=== PATIENT | male | born 1985 | race Caucasian/White ===

== ENCOUNTER 2017-02-16 19:19 | Emergency (ER) | payer OTHER ==
[~2017-02-16] VITALS: Ht 190.5 cm; Wt 104.5 kg
[2017-02-16 19:24] VITALS: BP 154/97; TEMP 99.2
[2017-02-16] MEDS ORDERED: AMOXICILLIN875 MG PO (19:42)
[2017-02-16 20:03] VITALS: PULSE 98
== END 2017-02-16 20:04 | disposition home or self-care (01) ==
LOC: COL.ER 19:19
DX: H65.192 Other acute nonsuppurative otitis media, left ear (principal)
CPT/HCPCS: J8540

== ENCOUNTER 2017-02-25 12:05 | Emergency (ER) | payer OTHER ==
[~2017-02-25] VITALS: Ht 190.5 cm; Wt 104.5 kg
[~2017-02-25 12:05] MED LIST: AMOXICILLIN875 MG PO
[2017-02-25 13:37] LABS: BASO # 0.1 (0.0-0.2); BASO % 0.4 % (0.0-2.0); EOS # 0.1 (0.0-0.7); EOS % 0.8 % (0-4.0); GRAN # 11.4 (1.4-6.5); GRAN % 76.7 % (42.2-75.2); HEMATOCRIT 46.2 % (42.0-52.0); HEMOGLOBIN 15.6 g/dl (13.5-18.0); LYMPH % 13.2 % (20.0-51.0); MEAN CELL VOLUME 84 fl (80.0-100.0); MEAN CORPUSCULAR HEMOGLOBIN 28 pg (27.0-31.0); MEAN CORPUSCULAR HGB CONC 34 g/dl (33.0-37.0); MEAN PLATELET VOLUME 9.6 fl (7.4-10.4); MONO # 1.3 (0.1-0.6); MONO % 8.4 % (1.7-9.3); PLATELET COUNT 418 K/mm3 (130-400); RED BLOOD COUNT 5.51 M/mm3 (4.20-5.60); REDCELL DISTRIBUTION WIDTH-CV 12.2 % (11.5-14.5); WHITE BLOOD COUNT 14.9 K/mm3 (4.8-10.8)
[2017-02-25 13:57] LABS: ADJUSTED CALCIUM 8.9 mg/dL (8.4-10.2); ALANINE AMINOTRANSFERASE 46 U/L (21-72); ALBUMIN 4.8 gm/dL (3.5-5.0); ALKALINE PHOSPHATASE 87 U/L (50-136); ANION GAP 15 mmol/L (7-16); BILIRUBIN,TOTAL 1.4 mg/dL (0.0-1.0); BLOOD UREA NITROGEN 17 mg/dL (9-20); CALCIUM 9.5 mg/dL (8.4-10.2); CARBON DIOXIDE 25 mmol/L (22-30); CHLORIDE 101 mmol/L (98-107); CREATININE, serum 0.89 mg/dL (0.66-1.25); GLUCOSE 89 mg/dL (74-106); POTASSIUM 4.6 mmol/L (3.4-5.0); SODIUM 141 mmol/L (137-145); TOTAL PROTEIN 8.3 gm/dL (6.4-8.2)
[2017-02-25 13:58] LABS: ACETAMINOPHEN < 10 ug/mL (10-30); SALICYLATE < 1.0 mg/dL
[2017-02-25 14:34] VITALS: BP 133/101; TEMP 97.5
[2017-02-25 14:43] LABS: PH 5 (5-8); SQUAMOUS EPITHELIAL 0-2 /hpf; URINE APPEARANCE Hazy; URINE BACTERIA None Seen /hpf; URINE BILIRUBIN Negative (NEGATIVE); URINE BLOOD Negative (NEGATIVE); URINE COLOR Amber; URINE GLUCOSE Negative (NEGATIVE); URINE KETONE 2+ (NEGATIVE); URINE RBC 0-2 /hpf; URINE UROBILINOGEN Negative (NEGATIVE); URINE WBC 0-2 /hpf
[2017-02-25 15:59] LABS: AMPHETAMINE URINE POSITIVE; BARBITURATES URINE NEGATIVE; BENZODIAZEPINES URINE NEGATIVE; BUPRENORPHINE URINE NEGATIVE; METHADONE URINE NEGATIVE; OPIATES URINE NEGATIVE; OXYCODONE URINE NEGATIVE; PHENCYCLIDINE URINE NEGATIVE; PROPOXYPHENE URINE NEGATIVE; THC CANNABINOIDS URINE NEGATIVE
[2017-02-25 16:46] LABS: C-REACTIVE PROTEIN < 0.5 mg/dL (0.0-0.9)
[2017-02-25 18:10] VITALS: PULSE 98
== END 2017-02-25 18:10 | disposition home or self-care (01) ==
LOC: COL.ER 12:05
PROVIDERS: Emergency Medicine
DX: F29 Unspecified psychosis not due to a substance or known physiological condition (principal); H66.93 Otitis media, unspecified, bilateral

== ENCOUNTER 2022-12-31 09:56 | Emergency (ER) | payer OTHER ==
[~2022-12-31] VITALS: Ht 188 cm; Wt 113.6 kg
[2022-12-31 10:53] LABS: BASO % 0.7 % (0.0-2.0); EOS # 0.1 K/mm3 (0.0-0.7); EOS % 2.6 % (0.0-4.0); GRAN # 3.3 K/mm3 (1.4-6.5); GRAN % 60.5 % (42.2-75.2); HEMATOCRIT 44.4 % (42.0-52.0); HEMOGLOBIN 15.1 g/dl (13.5-18.0); LYMPH # 1.5 K/mm3 (1.2-3.4); MEAN CELL VOLUME 81 fl (80.0-100.0); MEAN CORPUSCULAR HEMOGLOBIN 28 pg (27-31); MEAN CORPUSCULAR HGB CONC 34 g/dl (33.0-37.0); MEAN PLATELET VOLUME 9.8 fl (7.4-10.4); MONO # 0.5 K/mm3 (0.1-0.6); PLATELET COUNT 326 K/mm3 (130-400); RED BLOOD COUNT 5.46 M/mm3 (4.20-5.60); REDCELL DISTRIBUTION WIDTH-CV 12.8 % (11.5-14.5)
[2022-12-31 11:07] LABS: ALANINE AMINOTRANSFERASE 38 U/L (0-55); ALKALINE PHOSPHATASE 89 U/L (40-150); ANION GAP 8 mmol/L (7-16); AST,SGOT 34 U/L (5-34); BILIRUBIN,TOTAL 0.8 mg/dL (0.2-1.2); BLOOD UREA NITROGEN 11 mg/dL (9-21); CALCIUM 8.9 mg/dL (8.4-10.2); CARBON DIOXIDE 25 mmol/L (22-29); CHLORIDE 107 mmol/L (98-107); CREATINE KINASE 451 U/L (30-200); GLUCOSE 100 mg/dL (70-99); POTASSIUM 3.7 mmol/L (3.5-4.5); SODIUM 140 mmol/L (136-145); TOTAL PROTEIN 7.1 gm/dL (6.2-8.1)
[2022-12-31 11:14] LABS: TROPONIN-I < 0.010 ng/mL (0.00-0.033)
[2022-12-31 14:26] LABS: CREATINE KINASE 370 U/L (30-200)
[2022-12-31 14:33] LABS: TROPONIN-I < 0.010 ng/mL (0.00-0.033)
[2022-12-31] MEDS ORDERED: PRINIVIL5 MG PO (15:36)
[2022-12-31 15:52] VITALS: BP 157/108; PULSE 90; TEMP 98.3
== END 2022-12-31 16:18 | disposition home or self-care (01) ==
LOC: COL.ER 09:56
PROVIDERS: Nurse Practitioner
DX: T75.4XXA Electrocution, initial encounter (principal); I10 Essential (primary) hypertension
CPT/HCPCS: J7030

== ENCOUNTER 2023-11-01 06:51 | Emergency (ER) | payer OTHER ==
[~2023-11-01] VITALS: Ht 188 cm; Wt 113.6 kg
[~2023-11-01 06:51] MED LIST changes: +PRINIVIL5 MG PO
[2023-11-01 07:16] LABS: BASO # 0.1 K/mm3 (0.0-0.2); BASO % 0.7 % (0.0-2.0); EOS # 0.2 K/mm3 (0.0-0.7); EOS % 3.3 % (0.0-4.0); GRAN # 4.2 K/mm3 (1.4-6.5); GRAN % 60.3 % (42.2-75.2); HEMATOCRIT 42.8 % (42.0-52.0); HEMOGLOBIN 14.5 g/dl (13.5-18.0); LYMPH # 1.9 K/mm3 (1.2-3.4); LYMPH % 27.5 % (20.0-51.0); MEAN CELL VOLUME 82 fl (80.0-100.0); MEAN CORPUSCULAR HEMOGLOBIN 28 pg (27-31); MEAN CORPUSCULAR HGB CONC 34 g/dl (33.0-37.0); MEAN PLATELET VOLUME 9.7 fl (7.4-10.4); MONO # 0.6 K/mm3 (0.1-0.6); MONO % 7.9 % (1.7-9.3); PLATELET COUNT 321 K/mm3 (130-400); RED BLOOD COUNT 5.23 M/mm3 (4.20-5.60); REDCELL DISTRIBUTION WIDTH-CV 12.3 % (11.5-14.5)
[2023-11-01 07:33] LABS: ALANINE AMINOTRANSFERASE 32 U/L (0-55); ALBUMIN 3.8 gm/dL (3.5-5.0); ALKALINE PHOSPHATASE 88 U/L (40-150); ANION GAP 12 mmol/L (7-16); AST,SGOT 26 U/L (5-34); BILIRUBIN,TOTAL 0.7 mg/dL (0.2-1.2); BLOOD UREA NITROGEN 15 mg/dL (9-21); CALCIUM 8.9 mg/dL (8.4-10.2); CARBON DIOXIDE 21 mmol/L (22-29); CHLORIDE 107 mmol/L (98-107); CREATININE, serum 1.02 mg/dL (0.72-1.25); GLUCOSE 125 mg/dL (70-99); POTASSIUM 3.7 mmol/L (3.5-4.5); SODIUM 140 mmol/L (136-145); TOTAL PROTEIN 6.9 gm/dL (6.2-8.1)
[2023-11-01 07:39] LABS: TROPONIN-I < 0.010 ng/mL (0.00-0.033)
[2023-11-01] MEDS ORDERED: Ketorolac 15 MG/ML VIAL IV ONE (08:00)
[2023-11-01] MEDS ORDERED: FLEXERIL5 MG PO (09:36)
[2023-11-01 09:44] VITALS: BP 157/88; PULSE 67; TEMP 98.1
== END 2023-11-01 09:53 | disposition home or self-care (01) ==
LOC: COL.ER 06:51
PROVIDERS: Emergency Medicine
DX: M54.2 Cervicalgia (principal); R07.89 Other chest pain; R06.02 Shortness of breath
CPT/HCPCS: J1885